=== PATIENT | female | born 1960 | race African-American/Black ===

== ENCOUNTER 2016-06-15 07:19 | Emergency (ER) | payer OTHER ==
[~2016-06-15] VITALS: Ht 165.1 cm; Wt 63.5 kg
[~2016-06-15 07:19] MED LIST: AMOXICILLIN875 MG PO; ASPIRIN EC81 M1 PO; AZITHROMYCIN 2250 MG PO; CIPROFLOXACIN500 M1 PO; EXCEDRIN CAPLE1 EACH; FLEXERIL PO; FLONASE 0.05%50 MCG NS; IBUPROFEN 600600 M1 PO; IBUPROFEN 800800 MG PO; K-DUR 20 MEQ T20 MEQ PO; LASIX 20 MG TAB20 MG PO; MACROBID 100 M100 M1 PO; NOHOMEMEDICATIONS; NORCO 5-325 TA1 EACH PO; PHENERGAN 25 MG25 M1 PO; POTASSIUM20 PO; PYRIDIUM200 MG PO; TOPROL XL25 MG PO; TUSSIONEX PENN473 ML PO; TYLENOL EX-STR500 M2 PO; VALIUM5 MG PO; ZPAK PO; [UNRECOGNIZED DRUG - OTHER]
[2016-06-15] MEDS ORDERED: ESTRADIOL 1 MG T1 M1 PO (07:34)
[2016-06-15 07:36] VITALS: BP 124/85
[2016-06-15] MEDS ORDERED: EXCEDRIN CAPLE1 EACH PO (07:36)
[2016-06-15] MEDS ORDERED: FLONASE 0.05%50 MCG NASAL (07:50)
[2016-06-15] MEDS ORDERED: CLARITIN10 MG PO (07:50)
== END 2016-06-15 08:05 | disposition home or self-care (01) ==
LOC: ER 07:19
DX: J30.9 Allergic rhinitis, unspecified (principal); J32.9 Chronic sinusitis, unspecified; I10 Essential (primary) hypertension; F17.210 Nicotine dependence, cigarettes, uncomplicated; Z88.2 Allergy status to sulfonamides

== ENCOUNTER 2017-10-08 18:55 | Emergency (ER) | payer OTHER ==
[~2017-10-08] VITALS: Ht 167.6 cm; Wt 71.7 kg
[~2017-10-08 18:55] MED LIST changes: +CLARITIN10 MG PO; +ESTRADIOL 1 MG T1 M1 PO; +EXCEDRIN CAPLE1 EACH PO; +FLONASE 0.05%50 MCG NASAL
[2017-10-08 20:20] LABS: URINE BILIRUBIN NEGATIVE (Negative); URINE BLOOD TRACE (Negative); URINE CLARITY CLEAR; URINE COLOR YELLOW; URINE GLUCOSE-RANDOM* NEGATIVE (Negative); URINE KETONES NEGATIVE (Negative); URINE PROTEIN (DIPSTICK) NEGATIVE (Negative); URINE UROBILINOGEN 0.2 E.U./dl (0.2-1.0)
[2017-10-08 20:27] LABS: AMP/METHAMP Negative (Negative); BARBITURATES Negative (Negative); BENZODIAZEPINES Negative (Negative); COCAINE Negative (Negative); METHADONE Negative (Negative); OPIATES Negative (Negative); PCP Negative (Negative)
[2017-10-08 20:29] LABS: URINE LEUKOCYTES-REFLEX 1+ (Negative); URINE NITRITE-REFLEX POSITIVE (Negative)
[2017-10-08 20:34] LABS: CASTS None Seen /LPF (None Seen); SQUAMOUS 0-3 Few /LPF (0-3)
[2017-10-08 20:35] LABS: BACTERIA-REFLEX >30 Many /HPF (None Seen); RENAL EPITHELIAL CELLS 0-3 Few /LPF (None Seen); TRANSITIONAL EPITHEL CELL 0-3 Few /LPF (None Seen); URINE WBC-REFLEX 6-15 Few /HPF (0-5); WBC CLUMPS Few (None Seen)
[2017-10-08 20:36] LABS: CRYSTALS None Seen /LPF (None Seen); URINE RBC 0-2 Rare /HPF (0-2)
[2017-10-08 21:05] LABS: HEMATOCRIT 41.4 % (37.0-47.0); HEMOGLOBIN 14.4 gm/dL (12.0-15.0); MCH 35.7 pg (26.0-34.0); MCHC 34.9 g/dL (28.0-37.0); MCV 102.3 fL (80.0-100.0); PLATELET COUNT 190 thou/uL (150-400); RBC 4.05 mil/uL (4.20-5.00); RDW 12.8 % (10.5-14.5); WBC 6.6 thou/uL (4.0-11.0)
[2017-10-08 21:11] LABS: CALCIUM 9.3 mg/dL (8.5-10.1); CREATININE 0.6 mg/dL (0.6-1.0); POTASSIUM 3.7 mmol/L (3.5-5.1)
[2017-10-08 21:29] LABS: ABSOLUTE NEUTROPHILS 2.2 thou/uL (1.4-8.2); ANISOCYTOSIS 1+
[2017-10-08] MEDS ORDERED: KEFLEX500 M1 PO (21:40)
[2017-10-08 22:22] VITALS: BP 141/89
== END 2017-10-08 22:30 | disposition home or self-care (01) ==
LOC: ER 18:55
PROVIDERS: Emergency Medicine
DX: R51 Headache (principal); N39.0 Urinary tract infection, site not specified; F10.129 Alcohol abuse with intoxication, unspecified; I10 Essential (primary) hypertension

== ENCOUNTER 2019-02-13 12:16 | Emergency (ER) | payer OTHER ==
[~2019-02-13] VITALS: Ht 170.2 cm; Wt 65.8 kg
[~2019-02-13 12:16] MED LIST changes: +KEFLEX500 M1 PO
[2019-02-13 12:52] LABS: URINE BILIRUBIN NEGATIVE (Negative); URINE BLOOD NEGATIVE (Negative); URINE CLARITY CLEAR; URINE COLOR YELLOW; URINE GLUCOSE-RANDOM* NEGATIVE (Negative); URINE KETONES NEGATIVE (Negative); URINE LEUKOCYTES-REFLEX NEGATIVE (Negative); URINE NITRITE-REFLEX NEGATIVE (Negative); URINE PROTEIN (DIPSTICK) NEGATIVE (Negative); URINE SPECIFIC GRAVITY <= 1.005 (1.005-1.035); URINE UROBILINOGEN 0.2 E.U./dl (0.2-1.0)
[2019-02-13] MEDS ORDERED: PREDNISONE 20 M20 MG PO (13:44)
[2019-02-13] MEDS ORDERED: NORCO 5-325 TA1 EAC1 PO (13:44)
[2019-02-13] MEDS ORDERED: CLARITIN10 MG PO (13:44)
[2019-02-13 14:05] VITALS: BP 138/85
== END 2019-02-13 14:06 | disposition home or self-care (01) ==
LOC: ER 12:16
PROVIDERS: Nurse Practitioner Family
DX: S22.41XA Multiple fractures of ribs, right side, initial encounter for closed fracture (principal); J04.0 Acute laryngitis; J06.9 Acute upper respiratory infection, unspecified; I10 Essential (primary) hypertension; F17.210 Nicotine dependence, cigarettes, uncomplicated; Z98.890 Other specified postprocedural states; Z88.2 Allergy status to sulfonamides; X58.XXXA Exposure to other specified factors, initial encounter; Y93.89 Activity, other specified; Y92.89 Other specified places as the place of occurrence of the external cause; Y99.8 Other external cause status

== ENCOUNTER 2019-05-23 09:34 | Emergency (ER) | payer OTHER ==
[~2019-05-23] VITALS: Ht 170.2 cm; Wt 69.4 kg
[~2019-05-23 09:34] MED LIST changes: +NORCO 5-325 TA1 EAC1 PO; +PREDNISONE 20 M20 MG PO
[2019-05-23] MEDS ORDERED: MOBIC15 MG PO (11:14)
[2019-05-23 11:33] VITALS: BP 146/88
--- NOTE | 2019-05-23 13:50 | EKG ---
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 : 1960 Requested By: Flor Tomlin Order Number: [id number] MD: Bart Mi Measurements Intervals [place] Rate: 82 P: 46 CO: 112 QRS: -26 QRSD: 89 T: -4 QT: 404 QTc: 472 Interpretive Statements Sinus rhythm Borderline short CO interval Borderline left axis deviation Abnormal R-wave progression, late transition Nonspecific T abnormalities, anterior leads Compared to ECG 04/15/2011 11:21:30 T-wave abnormality now present Prolonged QT interval no longer present Electronically Signed On 05-23-2019 13:50:07 TOPOGRAPHICAL ENGINEER by Bart Mi [email or web address] <ELECTRONICALLY SIGNED> By: Bart Mi MD 05/23/19 1350 1046 1046 Bart Mi MD /EPI
== END 2019-05-23 11:34 | disposition home or self-care (01) ==
LOC: ER 09:34
DX: S46.911A Strain of unspecified muscle, fascia and tendon at shoulder and upper arm level, right arm, initial encounter (principal); I10 Essential (primary) hypertension; F17.210 Nicotine dependence, cigarettes, uncomplicated; M25.551 Pain in right hip; Z88.2 Allergy status to sulfonamides; X58.XXXA Exposure to other specified factors, initial encounter; Y93.89 Activity, other specified; Y92.89 Other specified places as the place of occurrence of the external cause; Y99.8 Other external cause status

== ENCOUNTER 2020-01-07 16:23 | Emergency (ER) | payer OTHER ==
[~2020-01-07] VITALS: Ht 167.6 cm; Wt 70.3 kg
[~2020-01-07 16:23] MED LIST changes: +MOBIC15 MG PO
[2020-01-07 17:37] LABS: ABSOLUTE NEUTROPHILS 3.5 thou/uL (1.4-8.2); BASOPHILS 0.3 % (0.0-2.0); EOSINOPHILS 0.1 % (0.0-3.0); HEMATOCRIT 41.5 % (37.0-47.0); HEMOGLOBIN 14.2 gm/dL (12.0-15.0); LYMPHOCYTES 22.9 % (24.0-44.0); MCH 36.5 pg (26.0-34.0); MCHC 34.2 g/dL (28.0-37.0); MCV 106.9 fL (80.0-100.0); MONOCYTES 7.2 % (1.0-8.0); POLYS 69.5 % (36.0-66.0); RBC 3.88 mil/uL (4.20-5.00); RDW 14.6 % (10.5-14.5); WBC 5.1 thou/uL (4.0-11.0)
[2020-01-07 17:53] LABS: CALCIUM 9.7 mg/dL (8.5-10.1); CREATININE 0.9 mg/dL (0.6-1.0); MAGNESIUM 1.3 mg/dL (1.8-2.4); POTASSIUM 3.8 mmol/L (3.5-5.1)
[2020-01-07 18:12] LABS: PLATELET COUNT 72 thou/uL (150-400)
[2020-01-07 20:04] LABS: ALBUMIN 4.3 g/dL (3.4-5.0); DIRECT BILIRUBIN 0.5 mg/dL (<0.1-0.2); PHOSPHORUS 2.6 mg/dL (2.5-4.9); TOTAL BILIRUBIN 1.4 mg/dL (0.2-1.0); TOTAL PROTEIN 9.7 g/dL (6.4-8.2)
[2020-01-07 20:08] LABS: APTT 27.3 Seconds (24.5-32.8); INR 1.3
[2020-01-07 20:38] LABS: URINE BILIRUBIN NEGATIVE (Negative); URINE BLOOD NEGATIVE (Negative); URINE CLARITY CLEAR; URINE COLOR YELLOW; URINE GLUCOSE-RANDOM* NEGATIVE (Negative); URINE KETONES TRACE (Negative); URINE LEUKOCYTES-REFLEX TRACE (Negative); URINE NITRITE-REFLEX NEGATIVE (Negative); URINE PROTEIN (DIPSTICK) NEGATIVE (Negative)
[2020-01-07 20:57] LABS: AMP/METHAMP Negative (Negative); BARBITURATES Negative (Negative); BENZODIAZEPINES Negative (Negative); COCAINE Negative (Negative); METHADONE Negative (Negative); OPIATES Negative (Negative); PCP Negative (Negative)
[2020-01-07] MEDS ORDERED: ATIVAN2 MG PO (21:33)
[2020-01-07] MEDS ORDERED: FLOMAX0.4 MG PO (21:33)
[2020-01-07] MEDS ORDERED: ONDANSETRON ODT8 MG PO (21:33)
[2020-01-07] MEDS ORDERED: MAG-OXIDE400 MG PO (21:34)
[2020-01-07 23:35] VITALS: BP 150/87
--- NOTE | 2020-01-09 08:44 | EKG ---
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: [facility] : 1960 Requested By: Yan Gaming Order Number: [id number] MD: Manuel Edward Measurements Intervals [place] Rate: 108 P: VT: QRS: -21 QRSD: 89 T: -39 QT: 380 QTc: 510 Interpretive Statements Sinus tachycardia Borderline left axis deviation Nonspecific T abnormalities Borderline prolonged QT interval Compared to ECG 05/23/2019 10:46:19 Heart rate has increased Electronically Signed On 01-09-2020 8:43:58 CDT by Manuel Edward [email or web address] <ELECTRONICALLY SIGNED> By: Manuel Edward MD, [facility] 01/09/20 0843 1715 1715 Manuel Edward MD, [facility] /EPI
== END 2020-01-07 23:38 | disposition home or self-care (01) ==
LOC: ER 16:23
PROVIDERS: Emergency Medicine
DX: R11.2 Nausea with vomiting, unspecified (principal); J06.9 Acute upper respiratory infection, unspecified; R33.9 Retention of urine, unspecified; D53.9 Nutritional anemia, unspecified; D69.6 Thrombocytopenia, unspecified; F10.10 Alcohol abuse, uncomplicated; R79.89 Other specified abnormal findings of blood chemistry; I10 Essential (primary) hypertension; F17.210 Nicotine dependence, cigarettes, uncomplicated; Z79.899 Other long term (current) drug therapy; Z88.2 Allergy status to sulfonamides; Y90.1 Blood alcohol level of 20-39 mg/100 ml

== ENCOUNTER 2020-01-10 13:03 | Emergency (ER) | payer OTHER ==
[~2020-01-10] VITALS: Ht 170.2 cm; Wt 70.3 kg
[~2020-01-10 13:03] MED LIST changes: +ATIVAN2 MG PO; +FLOMAX0.4 MG PO; +MAG-OXIDE400 MG PO; +ONDANSETRON ODT8 MG PO
[2020-01-10 14:01] LABS: URINE BILIRUBIN 1+ (Negative); URINE BLOOD 3+ (Negative); URINE CLARITY SL CLOUDY; URINE COLOR YELLOW; URINE GLUCOSE-RANDOM* NEGATIVE (Negative); URINE KETONES NEGATIVE (Negative); URINE NITRITE-REFLEX NEGATIVE (Negative); URINE PROTEIN (DIPSTICK) TRACE (Negative); URINE SPECIFIC GRAVITY 1.015 (1.005-1.035)
[2020-01-10 14:03] LABS: ICTOTEST (BILI CONFIRMATORY) Positive (Negative); URINE LEUKOCYTES-REFLEX 3+ (Negative)
[2020-01-10 14:11] LABS: MUCUS 4-6 Moderate strn/LPF (None Seen)
[2020-01-10 14:12] LABS: CALCIUM OXALATE 0-3 Few /LPF (None Seen); SQUAMOUS >10 Many /LPF (0-3); URINE RBC >20 Many /HPF (0-2)
[2020-01-10 14:13] LABS: CASTS None Seen /LPF (None Seen)
[2020-01-10 14:14] LABS: URINE WBC-REFLEX >25 Many /HPF (0-5)
[2020-01-10 15:12] LABS: HEMATOCRIT 37.7 % (37.0-47.0); HEMOGLOBIN 12.9 gm/dL (12.0-15.0); MCH 36.5 pg (26.0-34.0); MCHC 34.3 g/dL (28.0-37.0); MCV 106.5 fL (80.0-100.0); RBC 3.54 mil/uL (4.20-5.00); RDW 14.3 % (10.5-14.5); WBC 5.2 thou/uL (4.0-11.0)
[2020-01-10 15:21] LABS: CALCIUM 9.5 mg/dL (8.5-10.1); CREATININE 0.9 mg/dL (0.6-1.0); POTASSIUM 3.2 mmol/L (3.5-5.1)
[2020-01-10 15:34] LABS: ABSOLUTE NEUTROPHILS 2.1 thou/uL (1.4-8.2); ANISOCYTOSIS 1+; NUCLEATED RBCS 1 /100WBC; PLATELET COUNT 60 thou/uL (150-400); PLATELET ESTIMATE DECREASED; POLYCHROMASIA 1+
[2020-01-10 15:35] LABS: ALBUMIN 3.7 g/dL (3.4-5.0); TOTAL BILIRUBIN 1.4 mg/dL (0.2-1.0); TOTAL PROTEIN 8.6 g/dL (6.4-8.2)
[2020-01-10] MEDS ORDERED: KEFLEX500 M1 PO (15:49)
[2020-01-10 16:04] VITALS: BP 121/74
== END 2020-01-10 16:15 | disposition home or self-care (01) ==
LOC: ER 13:03
PROVIDERS: Physician Assistant
DX: Z46.6 Encounter for fitting and adjustment of urinary device (principal); N39.0 Urinary tract infection, site not specified; I10 Essential (primary) hypertension; F17.210 Nicotine dependence, cigarettes, uncomplicated; Z79.899 Other long term (current) drug therapy

== ENCOUNTER 2021-03-08 15:11 | Emergency (ER) | payer OTHER ==
[~2021-03-08] VITALS: Ht 170.2 cm; Wt 71.2 kg
[2021-03-08 15:52] LABS: HEMATOCRIT 36.8 % (37.0-47.0); HEMOGLOBIN 12.3 gm/dL (12.0-15.0); MCH 35.7 pg (26.0-34.0); MCHC 33.5 g/dL (28.0-37.0); MCV 106.7 fL (80.0-100.0); RBC 3.45 mil/uL (4.20-5.00); WBC 6.9 thou/uL (4.0-11.0)
[2021-03-08 17:18] LABS: ALBUMIN 3.4 g/dL (3.4-5.0); CALCIUM 8.6 mg/dL (8.5-10.1); CREATININE 0.6 mg/dL (0.6-1.0); POTASSIUM 3.2 mmol/L (3.5-5.1); TOTAL BILIRUBIN 0.4 mg/dL (0.2-1.0); TOTAL PROTEIN 8.2 g/dL (6.4-8.2)
[2021-03-08 18:24] LABS: AMP/METHAMP Negative (Negative); BARBITURATES Negative (Negative); BENZODIAZEPINES Negative (Negative); COCAINE Negative (Negative); METHADONE Negative (Negative); OPIATES Negative (Negative); PCP Negative (Negative)
[2021-03-08 19:01] LABS: URINE BILIRUBIN NEGATIVE (Negative); URINE BLOOD NEGATIVE (Negative); URINE CLARITY CLEAR; URINE COLOR YELLOW; URINE GLUCOSE-RANDOM* NEGATIVE (Negative); URINE KETONES NEGATIVE (Negative); URINE LEUKOCYTES-REFLEX NEGATIVE (Negative); URINE NITRITE-REFLEX NEGATIVE (Negative); URINE PROTEIN (DIPSTICK) NEGATIVE (Negative)
[2021-03-08 19:43] VITALS: BP 110/69
--- NOTE | 2021-03-09 08:23 | EKG ---
[facility] [place] [facility] [place] [address] ELECTROCARDIOGRAM REPORT Name: LOLA RHODES Room #: [facility]#: [id number] Admission: 03/08/21 Attend Phys: Discharge: 03/08/21 Date of : 62 Report #: [id number] [facility] ED Test Date: 2021-03-08 Test Time: 16:16:15 Pat Name: LOLA RHODES Department: Room: Gender: F Dogger: sonia : 1960 Requested By: Patricia Pabon Order Number: [id number] MD: Jan Lagunas Measurements Intervals [place] Rate: 85 P: 74 SD: 132 QRS: -24 QRSD: 90 T: 10 QT: 413 QTc: 492 Interpretive Statements Sinus rhythm Borderline left axis deviation Borderline prolonged QT interval Compared to ECG 01/07/2020 17:15:47 ST (T wave) deviation now present Sinus tachycardia no longer present T-wave abnormality no longer present Electronically Signed On 03-09-2021 8:23:01 CDT by Jan Lagunas [email or web address] <ELECTRONICALLY SIGNED> By: Jan Lagunas MD, [facility] 03/09/21822 15 15 Jan Lagunas MD, FAC /EPI
--- NOTE | 2021-03-09 08:25 | EKG ---
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 : 1960 Requested By: Patricia Pabon Order Number: [id number] MD: Jan Lagunas Measurements Intervals [place] Rate: 88 P: 77 RI: 124 QRS: -25 QRSD: 91 T: 18 QT: 422 QTc: 511 Interpretive Statements Sinus rhythm Borderline left axis deviation Low voltage, precordial leads Compared to ECG 01/07/2020 17:15:47 Low QRS voltage now present Sinus tachycardia no longer present T-wave abnormality no longer present Electronically Signed On 03-09-2021 8:25:23 CDT by Jan Lagunas [email or web address] <ELECTRONICALLY SIGNED> By: Jan Lagunas MD, [facility] 03/09/2125 40 40 Jan Lagunas MD, FAC /EPI
== END 2021-03-08 19:44 | disposition home or self-care (01) ==
LOC: ER 15:11
PROVIDERS: Nurse Practitioner Family
DX: F10.129 Alcohol abuse with intoxication, unspecified (principal); E87.6 Hypokalemia; D69.6 Thrombocytopenia, unspecified; E87.2 Acidosis; M79.602 Pain in left arm; I12.9 Hypertensive chronic kidney disease with stage 1 through stage 4 chronic kidney disease, or unspecified chronic kidney disease; N18.9 Chronic kidney disease, unspecified; F17.210 Nicotine dependence, cigarettes, uncomplicated; Z79.1 Long term (current) use of non-steroidal anti-inflammatories (NSAID); Z98.890 Other specified postprocedural states; Z79.891 Long term (current) use of opiate analgesic; Z79.899 Other long term (current) drug therapy; Z88.2 Allergy status to sulfonamides; Y90.8 Blood alcohol level of 240 mg/100 ml or more